=== PATIENT | male | born 1965 | race Caucasian/White ===

== ENCOUNTER 2020-09-11 11:39 | Emergency (ER) | payer OTHER ==
[~2020-09-11] VITALS: Ht 188 cm; Wt 91.0 kg
[2020-09-11 11:58] VITALS: BP 155/95
--- NOTE | 2020-09-11 12:28 | PHYS DOC ---
Past History Past Medical History: Hypertension Additional Past Medical Histor: PVC (OMARI QUESADA APRN) Past Surgical History: Other Additional Past Surgical Histo: SHOULER SURGERY, HERNIA REPAIR (OMARI QUESADA APRN) Alcohol Use: None (OMARI QUESADA APRN) General Adult EDM: Chief Complaint: SKIN PROBLEM HPI: HPI: Patient is a 55-year-old male presents with bruising and pain behind his left thigh and knee. Patient reports on Tuesday is when he noticed the bruising and swelling. Patient states pain is worse with sitting. Patient denies taking anything for pain. Denies history of DVTs. Denies shortness of breath. Denies injury. Patient has a history of PVCs and hypertension. (OMARI QUESADA APRN) Review of Systems: Review of Systems: Constitutional: Denies fever or chills Eyes: Denies change in visual acuity HENT: Denies nasal congestion or sore throat Respiratory: Denies cough or shortness of breath Cardiovascular: Denies chest pain or edema GI: Denies abdominal pain, nausea, vomiting, bloody stools or diarrhea : Denies dysuria Musculoskeletal: Denies back pain or joint pain Integument: Reports bruising and swelling behind left knee Neurologic: Denies headache, focal weakness or sensory changes Endocrine: Denies polyuria or polydipsia Lymphatic: Denies swollen glands Psychiatric: Denies depression or anxiety (OMARI QUESADA APRN) Physical Exam: PE: Constitutional: Well developed, well nourished, no acute distress, non-toxic appearance. [] HENT: Normocephalic, atraumatic, bilateral external ears normal, oropharynx moist, no oral exudates, nose normal. [] Eyes: PERRLA, EOMI, conjunctiva normal, no discharge. [] Neck: Normal range of motion, no tenderness, supple, no stridor. [] Cardiovascular:Heart rate regular rhythm, no murmur [] Lungs & Thorax: Bilateral breath sounds clear to auscultation [] Abdomen: Bowel sounds normal, soft, no tenderness, no masses, no pulsatile masses. [] Skin: Warm, dry, swelling and bruising behind left knee and thigh Back: No tenderness, no CVA tenderness. [] Extremities: No tenderness, no cyanosis, no clubbing, ROM intact, no edema. [] Neurologic: Alert and oriented X 3, normal motor function, normal sensory function, no focal deficits noted. [] Psychologic: Affect normal, judgement normal, mood normal. [] (OMARI QUESADA APRN) Current Patient Data: Vital Signs: Vital Signs Date Time Temp Pulse Resp B/P (MAP) Pulse Ox O2 Delivery O2 Flow Rate FiO2 09/11/20 11:58 97.9 57 18 155/95 (115) 100 Room Air (OMARI QUESADA APRN) EKG: EKG: [] (OMARI QUESADA APRN) Radiology/Procedures: Radiology/Procedures: []Examination: LEFT LOWER EXTREMITY - UNILATERAL VENOUS DOPPLER Technique: Ultrasound evaluation of the left lower extremity was performed from the groin to the upper calf with knutson scale, spectral and color doppler evaluation. Indication: Leg swelling Comparison: None Findings: There is normal venous flow and compressibility of left common femoral vein, femoral vein, popliteal vein, and visualized proximal calf veins. Impression: No evidence for deep vein thrombosis of left lower extremity from the level of the calf veins to the groins. Electronically signed by: Ezequiel Fuentes MD (09/11/2020 12:50 PM) [id number] (OMARI QUESADA APRN) Heart Score: C/O Chest Pain: No Risk Factors: Risk Factors: DM, Current or recent (<one month) smoker, HTN, HLP, family history of CAD, obesity. Risk Scores: Score 0 - 3: 2.5% MACE over next 6 weeks - Discharge Home Score 4 - 6: 20.3% MACE over next 6 weeks - Admit for Clinical Observation Score 7 - 10: 72.7% MACE over next 6 weeks - Early Invasive Strategies (OMARI QUESADA APRN) Course & Med Decision Making: Course & Med Decision Making Pertinent Labs and Imaging studies reviewed. (See chart for details) [] 55-year-old male presents with bruising, swelling and pain behind his left knee and thigh that he noticed on Tuesday. Patient denies any injury. Patient denies a history of DVTs. Pedal pulses are intact. Denies shortness of breath. Left, lower extremity ultrasound ordered to rule out DVT. Lower extremity ultrasounds negative for DVT. Patient given strict return precautions if patient has an increase in swelling, pain, shortness of breath. Patient most likely has a ruptured varicose vein. Patient is okay with discharge plan and appreciative. (OMARI QUESADA APRN) Dragon Disclaimer: Dragon Disclaimer: This electronic medical record was generated, in whole or in part, using a voice recognition dictation system. (OMARI QUESADA APRN) Attending Co-Sign The patient was seen and interviewed as well as examined at the bedside. The chart was reviewed. The case was discussed. Agree with the plan of care. (RANDAL SALMERON DO) Departure Departure: Impression: Primary Impression: Ruptured varicose vein Disposition: HOME / SELF CARE / HOMELESS Condition: STABLE Referrals: PCP,NO (PCP) Patient Instructions: Leg Cramps Additional Instructions: You were seen in the emergency room for left leg swelling, bruising and pain. Ultrasound was ordered of your left leg which was negative for a DVT. You most likely had a varicose vein rupture, which is causing the bruising. Please return to emergency room if you have an increase in swelling, pain, shortness of breath. Ibuprofen, Tylenol, ice to the area may help with discomfort. EMERGENCY DEPARTMENT GENERAL DISCHARGE INSTRUCTIONS Thank you for coming to [facility] (ED) today and trusting us with you care. We trust that you had a positivie experience in our Emergency Department. If you wish to speak to the department management, you may call the director at [phone]. YOUR FOLLOW UP INSTRUCTIONS ARE FOLLOWS: 1. Do you have a private Doctor? If you do not have a private doctor, please ask for a resource list of physicians or clinics that may be able to assist you with follow up care. 2. The Emergency Physician has interpreted your x-rays. The X-Ray specialist will also review them. If there is a change in the findings, you will be notified in 48 hours when at all possible. 3. A lab test or culture has been done, your results will be reviewed and you will be notified if you need a change in treatment. ADDITIONAL INSTRUCTIONS AND INFORMATION: 1. Your care today has been supervised by a physician who is specially trained in emergency care. Many problems require more than one evaluation for a complete diagnosis and treatment. We recommend that you schedule your follow up appointment as recommended to ensure complete treatment of you illness or injury. If you are unable to obtain follow up care and continue to have a problem, or if your condition worsens, we recommend that you return to the ED. 2. We are not able to safely determine your condition over the phone nor are we able to give sound medical advice over the phone. For these safety reasons, if you call for medical advice we will ask you to come to the ED for further evaluation. 3. If you have any questions regarding these discharge instructions please call the ED at [phone]. SAFETY INFORMATION: In the interest of safety, wellness, and injury prevention; we encourage you to wear your sealbelt, if you smoke; quite smoking, and we encourage family to use a protective helmet for bicycling and other sporting events that present an increased risk for head injury. IF YOUR SYMPTOMS WORSEN OR NEW SYMPTOMS DEVELOP, OR YOU HAVE CONCERNS ABOUT YOUR CONDITION; OR IF YOUR CONDITION WORSENS WHILE YOU ARE WAITING FOR YOUR FOLLOW UP APPOINTMENT; EITHER CONTACT YOUR PRIMARY CARE DOCTOR, THE PHYSICIAN WHOSE NAME AND NUMBER YOU WERE GIVEN, OR RETURN TO THE ED IMMEDIATELY. OMARI QUESADA APRN September 11, 2020 12:28 RANDAL SALMERON DO September 12, 2020 06:18
--- NOTE | 2020-09-11 12:52 | RAD ---
Examination: LEFT LOWER EXTREMITY - UNILATERAL VENOUS DOPPLER Technique: Ultrasound evaluation of the left lower extremity was performed from the groin to the uppe r calf with knutson scale, spectral and color doppler evaluation. Indication: Leg swelling Comparison: None Findings: There is normal venous flow and compressibility of left common femoral vein, femoral vein, popliteal vein, and visualized proximal calf veins. Impression: No evidence for deep vein thrombosis of left lower extremity from the level of the calf v eins to the groins. Electronically signed by: Ezequiel Fuentes MD (09/11/2020 12:50 PM) [id number]
== END 2020-09-11 13:20 | disposition home or self-care (01) ==
LOC: ER 11:39
DX: I83.892 Varicose veins of left lower extremity with other complications (principal); I10 Essential (primary) hypertension
CPT/HCPCS: 93971; 99284-25

== ENCOUNTER → 2020-12-19 | Outpatient (CLI) | payer OTHER ==
--- NOTE | 2020-12-19 15:38 | RAD ---
INDICATION: Reason: MILD LEFT FLANK PAIN, HEMATURIA / Spl. Instructions: / History: . COMPARISON: None. TECHNIQUE: Axial CT images obtained through the abdomen and pelvis without contrast. One or more of the following individualized dose reduction techniques were utilized for this examinat ion: 1. Automated exposure control; 2. Adjustment of the mA and/or kV according to patient size; 3 . Use of iterative reconstruction technique. FINDINGS: Abdominal aorta is not aneurysmal. There are some mildly prominent lymph nodes in the groin bilateral ly as well as postoperative changes with surgical clips at right inguinal region. Gallbladder is largely contracted. No intrahepatic bile duct dilation. No peripancreatic fluid collection. Spleen unremarkable. No hydronephrosis. Urinary bladder is largely decompressed with some prominence of the wall. Prostate is prominent in size. Small fat-containing umbilical hernia. No periappendiceal inflammatory changes. No dilated loops of bowel to suggest obstruction. Pars defect at L5 on the right. Degenerative changes the spine with disc protrusions and osteophyte formation as well as facet hypert rophy with multilevel central canal and neural foraminal stenosis. IMPRESSION: * Urinary bladder wall is prominent in thickness. Possible causes would include chronic partial blad mendy outlet obstruction from enlarged prostate with cystitis also within the differential. A bladder w all lesion cannot be excluded given the wall prominence. * No evidence of bowel obstruction or appendicitis. * Degenerative changes the spine with multilevel central canal and neural foraminal stenosis. Electronically signed by: Jeffy Brady MD (12/19/2020 3:36 PM) [id number]
== END ==
LOC: CT 13:16
PROVIDERS: ATTEND Family Medicine Sports Medicine
DX: K42.9 Umbilical hernia without obstruction or gangrene (principal); K82.0 Obstruction of gallbladder; M47.817 Spondylosis without myelopathy or radiculopathy, lumbosacral region; M25.78 Osteophyte, vertebrae; M48.07 Spinal stenosis, lumbosacral region; M51.27 Other intervertebral disc displacement, lumbosacral region
CPT/HCPCS: 74176

== ENCOUNTER → 2021-02-04 | Outpatient (CLI) | payer OTHER ==
[~2021-02-04] MED LIST: CONTRAST GIVEN. MC PRN; IOHEXOL 300 MG/ML 75 ML VIAL. IV ONE
--- NOTE | 2021-02-04 15:16 | RAD ---
Exam: CT abdomen/pelvis with and without intravenous contrast Indication: Hematuria Comparison: CT abdomen pelvis 12/19/2020 Technique: Helical CT imaging performed of the abdomen and pelvis before and after the intravenous ad ministration of contrast, per urogram protocol. Sagittal and coronal reformats were obtained. One or more of the following individualized dose reduction techniques were utilized for this examinat ion: 1. Automated exposure control 2. Adjustment of the mA and/or kV according to patient size 3. Use of iterative reconstruction technique. Findings: Lower chest: Lung bases are clear. Heart is normal in size Liver: Normal. Gallbladder/Biliary Tree: Normal. Pancreas: Normal. Spleen: Normal. Adrenal Glands: Normal. Kidneys/Ureters/Bladder: Kidneys are normal in size and enhance symmetrically. No nephrolithiasis or hydronephrosis. Prompt excretion of contrast into the renal collecting systems. Ureters are normal co urse and caliber without filling defect. The bladder is normally distended with contrast. There is no dularity at the trigone of the bladder, which may be due to indentation from the prostate gland. The bladder wall is otherwise normal in appearance. Reproductive Organs: The prostate gland is enlarged measuring 5.5 x 4.4 x 4.1 cm with nodularity cent rally. Stomach, small bowel, and colon: Stomach, small bowel, appendix, and colon are normal. Vasculature: No aortic aneurysm. Lymph Nodes: Unchanged left common iliac chain lymph node measuring 6 mm short axis. Multiple additio nal small periaortic lymph nodes and bilateral inguinal lymph nodes, nonspecific. Peritoneum and retroperitoneum: No free fluid or free air. Bones: There is degenerative disc disease at L5-S1 and L2-L3 with canal narrowing at L2-L3 related to a disc osteophyte complex. There is degenerative disc disease and partial fusion of sacroiliac joint s.. Miscellaneous: Surgical changes of right inguinal hernia repair. Impression: Nodularity at the bladder trigone may be due to indentation from an enlarged and nodular prostate gland although a bladder mass is not entirely excluded. Electronically signed by: Temitope Russo MD (02/04/2021 3:14 PM) [facility]
== END ==
LOC: CT 13:03
PROVIDERS: ATTEND Specialist
DX: N40.0 Benign prostatic hyperplasia without lower urinary tract symptoms (principal); R31.0 Gross hematuria; N32.89 Other specified disorders of bladder; M51.37 Other intervertebral disc degeneration, lumbosacral region; M48.061 Spinal stenosis, lumbar region without neurogenic claudication; M51.36 Other intervertebral disc degeneration, lumbar region; M43.28 Fusion of spine, sacral and sacrococcygeal region; M25.78 Osteophyte, vertebrae
CPT/HCPCS: 74178; Q9967